=== PATIENT | male | born 1965 | race Caucasian/White ===

== ENCOUNTER → 2016-05-12 | Outpatient (CLI) | payer OTHER ==
[~2016-05-12] MED LIST: MECL1TAB42 PO; ONDA4TAB10 SL; ONDA4TAB46 PO
== END | disposition home or self-care (01) ==
LOC: C.RDSM 10:33
PROVIDERS: ATTEND Orthopaedic Surgery Sports Medicine
DX: R52 Pain, unspecified (principal)

== ENCOUNTER → 2016-08-24 | Outpatient (CLI) | payer OTHER | END | disposition home or self-care (01) | LOC: C.RDSM 08:32 | PROVIDERS: ATTEND Orthopaedic Surgery Sports Medicine | DX: M79.641 Pain in right hand (principal); M79.642 Pain in left hand ==